=== PATIENT | male | born 1955 | race Hispanic/Latino ===

== ENCOUNTER 2024-07-22 18:33 | Emergency (ER) | payer OTHER ==
[~2024-07-22 18:33] MED LIST: Iopamidol-370 76% 500 ML MDV (1 ML CHARGE) ONE
[2024-07-22 19:57] LABS: #Basophils 0.05 10x3/uL (0.0-0.2); %Eosinophils 4.5 % (0.0-10.0); %Lymphocytes 27.3 % (21.0-51.0); %Monocytes 11.1 % (0.0-10.0); %Neutrophils 55.9 % (42.0-75.0); Hematocrit 31.1 % (42.0-52.0); Hemoglobin 10.1 g/dL (14.0-18.0); Mean Corpuscular HGB CONC 32.5 g/dL (32.0-36.0); Mean Corpuscular Hemoglobin 32.5 pg (27.0-31.0); Platelet Count 109 10x3/uL (130-400); RBC Distribution Width 15.9 % (11.5-14.5); Red Blood Cell (RBC) Count 3.11 mill/uL (4.70-6.10)
[2024-07-22 20:16] LABS: Acetaminophen Less than 10 mcg/mL (Less than 10); Alcohol Less than 10.0 mg/dL (Less than 10); Salicylate Less than 8.0 mg/dL (Less than 8.0)
[2024-07-22 20:18] LABS: ALT (SGPT) 8 U/L (Less than 45); AST (SGOT) 20 U/L (11-34); Albumin 2.7 g/dL (3.1-4.5); Alkaline Phosphatase 106 U/L (40-110); Anion Gap 13 mmol/L (10-20); BUN (Urea Nitrogen) 16 mg/dL (8.4-25.7); Bilirubin, Total 1.1 mg/dL (0.3-1.2); CK (CPK) 91 U/L (30-200); Calc. Creatinine Clearance 0 mL/min (70-130); Calcium 8.8 mg/dL (7.8-10.44); Carbon Dioxide 29 mmol/L (23-31); Chloride 105 mmol/L (98-107); Estimated GFR 79; Globulin 4.3 g/dL (2.4-3.5); Glucose 127 mg/dL (80-115); Potassium 3.1 mmol/L (3.5-5.1); Sodium 144 mmol/L (136-145)
[2024-07-22] MEDS ORDERED: Acetaminophen 500 MG TAB ONE ×2 (20:20→20:24)
[2024-07-22 20:22] LABS: Burr Cells SLIGHT = 2-5 cells HPF (0-1); Platelet Adequacy Comment Platelets Decreased; Polychromasia SLIGHT = 2-3 cells HPF (0-2); Target Cells SLIGHT = 2-5 cells HPF (0-1)
[2024-07-22] MEDS ORDERED: Ketorolac Tromethamine 30 MG (1 mL) VIAL ONE (21:59)
[2024-07-23] MEDS ORDERED: Lactulose 20 GM (30 mL) UDCUP ONE (00:36)
== END 2024-07-23 05:50 | disposition short-term general hospital (02) ==
LOC: EEVIPCON 18:33 → ERS 18:33
DX: S22.42XA Multiple fractures of ribs, left side, initial encounter for closed fracture (principal); R41.82 Altered mental status, unspecified; I10 Essential (primary) hypertension; K21.9 Gastro-esophageal reflux disease without esophagitis; R29.700 NIHSS score 0; W05.0XXA Fall from non-moving wheelchair, initial encounter
CPT/HCPCS: 36415; 36416; 70450; 71045; 71275; 72125; 80053; 80307; 82140; 82550; 85025; 93005; 96374; J1885; Q9967